=== PATIENT | male | born 1955 | race Hispanic/Latino ===

== ENCOUNTER → 2018-12-28 | Outpatient (CLI) | payer BC, MEDICARE ==
[~2018-12-28] MED LIST: DIATRIZOATE MEGL/DIATRIZOA SOD 30 ML BTL PO ONE; IOPAMIDOL 370 MG/ML 200 ML INFUS..BTL INJ ONE; SODIUM CHLORIDE 0.9% 50ML 50 ML ONE
--- NOTE | 2018-12-28 10:19 | Diagnostic Imaging Report ---
Lumbar spine series, 5 views. History: Back pain. Comparison: None available. Discussion: The paraspinal soft tissues are unremarkable. There is moderate dextroscoliosis of the lumbar spine. There is no evidence of fracture, spondylolisthesis, or spondylolysis. Severe diffuse disc space narrowing with vacuum phenomenon, osteophytosis, and posterior facet sclerosis are present. 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 Signed by: Kuldip Cifuentes on 12/28/2018 10:16 AM
[2018-12-28 10:40] LABS: BLOOD UREA NITROGEN 11 mg/dL (7-26); BUN/CREATININE RATIO 16 (6-25); CREATININE, SERUM 0.69 mg/dL (0.72-1.25); EST GLOMERULAR FILTRATION RATE > 60 ML/MIN (60-)
--- NOTE | 2018-12-28 12:14 | Diagnostic Imaging Report ---
CT of the abdomen and pelvis, with contrast, 12/28/2018. History: History of rectal cancer. Comparison: None available. Technique: Multidetector CT scanning of the abdomen and pelvis was performed from the level of the lung bases to the inferior pubic rami after intravenous and oral administration of contrast. Coronal and sagittal multiplanar reformations were obtained. RADIATION DOSE: Total DLP: 662 mGy*cm Dose modulation, iterative reconstruction, and/or weight based adjustment of the mA/kV was utilized to reduce the radiation dose to as low as reasonably achievable. Discussion: LUNG BASES: Right middle lobe and lingular atelectasis are present. ABDOMEN: The liver, gallbladder, biliary tree, spleen, pancreas, adrenal glands, and kidneys are normal. The hepatic vein, portal vein, and splenic vein are patent. The abdominal aorta is within normal limits for size. Status post distal colonic resection with left lower quadrant colostomy present. Scattered diverticula are present within the colon without evidence of adjacent inflammation. The stomach and small bowel are unremarkable. The appendix is visualized and is normal. There is no evidence of adenopathy or free fluid. PELVIS: Prior distal colonic/anal resection. Ill-defined soft tissue density structure is noted in the inferior posterior pelvis in the surgical bed measuring approximately 3 x 4 cm. The bladder, prostate, and seminal vesicles are normal in appearance. A small fat-containing right inguinal hernia is present. There is no evidence of free fluid or adenopathy. BONES AND SOFT TISSUES: Scoliosis with advanced degenerative changes of the lumbar spine are present without evidence of lytic or sclerotic lesion. Degenerative changes are also noted within the hips bilaterally. IMPRESSION: 1. No evidence of metastatic disease. 2. Status post abdominoperineal resection. Soft tissue density in the surgical bed may represent postoperative change but without prior film for comparison, local recurrence cannot be excluded. If comparison images cannot be obtained, consider further evaluation with PET/CT. 3. Left lower quadrant colostomy is present. Scattered colonic diverticulosis is noted without evidence of diverticulitis. Signed by: Kuldip Cifuentes on 12/28/2018 12:10 PM
== END ==
LOC: CT 09:00
PROVIDERS: ATTEND Internal Medicine Medical Oncology
DX: C20 Malignant neoplasm of rectum (principal); R10.9 Unspecified abdominal pain; M54.16 Radiculopathy, lumbar region
CPT/HCPCS: 36415; 72110; 74177; 82565; 84520; Q9967